=== PATIENT | male | born 1980 | race Caucasian/White ===

== ENCOUNTER 2023-09-08 20:47 | Emergency (ER) | payer MEDICAID ==
[~2023-09-08] VITALS: Ht 185.4 cm; Wt 174.7 kg
[2023-09-08 21:48] VITALS: BP 103/71; PULSE 77; RESP 16; TEMP 97.8; O2SAT 93
== END 2023-09-08 21:53 | disposition home or self-care (01) ==
LOC: ER 20:48
DX: I51.7 Cardiomegaly (principal); R07.9 Chest pain, unspecified; F12.90 Cannabis use, unspecified, uncomplicated; E16.2 Hypoglycemia, unspecified; K21.9 Gastro-esophageal reflux disease without esophagitis
CPT/HCPCS: 71045; 82948; 93005; 99283